=== PATIENT | female | born 1950 | race Caucasian/White ===

== ENCOUNTER → 2016-10-20 | Outpatient (REF) | payer MEDICARE, OTHER | LOC: LAB 09:30 | PROVIDERS: ATTEND Family Medicine | DX: E11.9 Type 2 diabetes mellitus without complications (principal) | CPT/HCPCS: 82570; 83036; 84156 ==

== ENCOUNTER → 2017-01-08 | Outpatient (REF) | payer MEDICARE, OTHER ==
[~2017-01-08] MED LIST: FLUO20CA42 PO; GLMP4T PO; LEVO175T2 PO; LSNP10T PO; METF500T4 PO; SITA100T PO
[2017-01-08 11:10] LABS: ALBUMIN 4.8 g/dL (3.4-5.0); ANION GAP 19.8 MEQ/L (3-15); CALCULATED IONIZED CALCIUM 4.2 mg/dL (3.8-4.6); TOTAL PROTEIN 7.6 g/dL (6.4-8.5)
== END ==
LOC: LAB 10:44
PROVIDERS: ATTEND Family Medicine
DX: Z00.00 Encounter for general adult medical examination without abnormal findings (principal); E11.9 Type 2 diabetes mellitus without complications; I10 Essential (primary) hypertension; Z11.59 Encounter for screening for other viral diseases
CPT/HCPCS: 80053; 80061; 83036; 86803

== ENCOUNTER → 2017-02-12 | Outpatient (CLI) | payer MEDICARE, OTHER ==
--- NOTE | 2017-02-13 21:41 | Diagnostic Imaging Report ---
INDICATION: Digital screening. The current study was also evaluated with a Computer Aided Detection (CAD) system. COMPARISON: 02/05/2016, 02/01/2015, and 01/20/2014. FINDINGS: The exam is stable and negative. There is no breast mass, spiculated lesion, architectural distortion, suspicious calcifications, or interval changes. IMPRESSION: Stable negative mammograms. ACR BI-RADS Category 1: Negative. Result letter will be mailed to the patient. Note: At least 10% of breast cancer is not imaged by mammography. Dictated by: Dictated on workstation # [id number]
== END ==
LOC: RAD 08:55
PROVIDERS: ATTEND Nurse Practitioner Family
DX: Z12.31 Encounter for screening mammogram for malignant neoplasm of breast (principal)